=== PATIENT | female | born 1965 ===

== ENCOUNTER 2017-12-11 07:35 | Inpatient (IN) | payer OTHER ==
[2017-12-11 08:11] VITALS: BMI 22.8
[2017-12-11] MEDS ORDERED: Sodium Chloride 0.9% 1,000 ML IV STA (08:35)
--- NOTE | 2017-12-11 09:04 | ED PDOC ---
HPI: Abdomen Time Seen by Provider: 12/11/17 08:23 Chief Complaint (Nursing): Abdominal Pain Chief Complaint (Provider): Abdominal Pain History Per: Patient History/Exam Limitations: no limitations Onset/Duration Of Symptoms: Days (x today) Current Symptoms Are (Timing): Still Present Additional Complaint(s): 52-year-old female, with a PMHx of renal cancer, presents to ED with acute onset of periumbilical abdominal cramping and pain sensation that started this morning at 05:00. Pt reports (+) vomiting, but (-) diarrhea. Pt reports she vomited x 4. Reports pain is localized and non-radiating. (-) fever, (-) chills , (-) urinary symptoms. Pt denies having diabetes or hypertension. Pt states she lives in [place], [place] and is visiting daughter in [place]. Pt off plane yesterday and reports she was okay. PMD: No Provider Past Medical History Reviewed: Historical Data, Nursing Documentation, Vital Signs Vital Signs: Last Vital Signs Temp 98 F 12/11/17 08:10 Pulse 78 12/11/17 08:10 Resp 16 12/11/17 08:10 BP 106/72 12/11/17 08:10 Pulse Ox 100 12/11/17 13:43 - Medical History PMH: Denies: Diabetes, HTN Other PMH: Renal Cancer - Surgical History Surgical History: Appendectomy (many years ago) Other surgeries: left nephrectomy - Family History Family History: States: No Known Family Hx - Social History Current smoker - smoking cessation education provided: No Alcohol: None Drugs: Denies - Allergies Allergies/Adverse Reactions: Allergies Allergy/AdvReac Type Severity Reaction Status Date / Time No Known Allergies Allergy Verified 12/11/17 08:13 Review of Systems ROS Statement: Except As Marked, All Systems Reviewed And Found Negative Constitutional: Negative for: Fever, Chills Cardiovascular: Negative for: Chest Pain Respiratory: Negative for: Cough, Shortness of Breath Gastrointestinal: Positive for: Nausea, Vomiting, Abdominal Pain. Negative for : Diarrhea Genitourinary Female: Negative for: Dysuria, Hematuria Musculoskeletal: Negative for: Back Pain Skin: Negative for: Rash Physical Exam - Reviewed Nursing Documentation Reviewed: Yes Vital Signs Reviewed: Yes - Physical Exam Appears: Positive for: Well (Well-nourished), In Acute Distress (Moderate discomfort from pain) Head Exam: Positive for: ATRAUMATIC, NORMAL INSPECTION, NORMOCEPHALIC Skin: Positive for: Normal Color, Warm, Dry. Negative for: Rash, Jaundice Eye Exam: Negative for: Scleral icterus ENT: Positive for: Other ((+) Muscous membrane is mildly dry, (-) sinusitis) Neck: Positive for: Supple Cardiovascular/Chest: Positive for: Regular Rate, Rhythm (s1 and s2 heart sounds present) Respiratory: Positive for: Normal Breath Sounds (Lungs clear). Negative for: Respiratory Distress Gastrointestinal/Abdominal: Positive for: Bowel Sounds (Bowel sounds present in all 4 quadrants), Soft, Tenderness (Moderate tenderness on palpation to LLQ and periumbilical area), Other ((+) vertical scar noted to midline, (+) horizontal scar noted to RLQ). Negative for: Distended Back: Positive for: Normal Inspection. Negative for: L CVA Tenderness, R CVA Tenderness Extremity: Positive for: Normal ROM. Negative for: Pedal Edema Neurologic/Psych: Positive for: Alert, Oriented (x 3) - Laboratory Results Result Diagrams: 12/11/17 08:42 12/11/17 08:42 - ECG O2 Sat by Pulse Oximetry: 100 (RA) Pulse Ox Interpretation: Normal Medical Decision Making Medical Decision Making: Time: 08:35 Impression(s): Abdominal Pain Differentials include, but not limited to: Gastritis, Small Bowel Obstruction, Colitis, UTI Plan: - CMP - Lipase - ED Urine Dipstick - CBC (with differentials) - Obstructive Series X-Ray - Sodium Chloride 0.9% 1,000 ml IV 999 mls/hr - Pepcid 20 mg IVP - Toradol 30 mg IVP - Zofran 4 mg IVP Time: 10:50 - CT Abdomen and Pelvis PO Contrast - Omnipaque 240 (50 ML) 50 ml PO Time: 11:33 Obstructive Series X-Ray FINDINGS: CHEST: Lungs: Clear. Cardiovascular: Normal size heart. No pulmonary vascular congestion. Pleura: No pleural fluid. No pneumothorax. Other findings: None. ABDOMEN AND PELVIS: Bowel: Unremarkable bowel gas pattern. No evidence of mechanical obstruction. Free air: None. Bones: Degenerative changes. Other findings: Left upper quadrant surgical clips. IMPRESSION: Unremarkable radiographs of chest and abdomen. No evidence of mechanical bowel obstruction. Time: 13:20 CT Abdomen and Pelvis w/o IV Contrast FINDINGS: LOWER THORAX: Unremarkable. LIVER: Unremarkable. No gross lesion or ductal dilatation. GALLBLADDER AND BILE DUCTS: Unremarkable. PANCREAS: Unremarkable. No gross lesion or ductal dilatation. SPLEEN: Unremarkable. ADRENALS: Unremarkable. No mass. KIDNEYS AND URETERS: Punctate nonobstructive right interpolar calculi. Prior left nephrectomy. No hydronephrosis. No solid mass. VASCULATURE: Unremarkable. No aortic aneurysm. BOWEL: Small to moderate hiatal hernia. Dilated small bowel loops with abrupt transition in the retro umbilical abdomen and fecalization of small bowel contents. No gross mural thickening. APPENDIX: No findings to suggest acute appendicitis. PERITONEUM: Small fat containing umbilical hernia. Trace nonspecific free fluid in the pelvis. No free air. LYMPH NODES: Unremarkable. No enlarged lymph nodes. BLADDER: Unremarkable. REPRODUCTIVE: Unremarkable. BONES: No acute fracture. OTHER FINDINGS: None. IMPRESSION: Small bowel obstruction with transition zone in the retro umbilical abdomen. Nonobstructive right-sided nephrolithiasis. Findings conveyed to Dr. Ordaz by Dr. Ambrose at 1:18 p.m. on 12/11/2017. 13:42 ED Provider discussed case with surgical garment inspector Scribe Attestation: Documented by Adeel Carmona, acting as a scribe for Bri Ordaz MD. Provider Scribe Attestation: All medical record entries made by the Scribe were at my direction and personally dictated by me. I have reviewed the chart and agree that the record accurately reflects my personal performance of the history, physical exam, medical decision making, and the department course for this patient. I have also personally directed, reviewed, and agree with the discharge instructions and disposition. Disposition - Clinical Impression Clinical Impression: SBO (small bowel obstruction) - Patient ED Disposition Is Patient to be Admitted: Yes Doctor Will See Patient In The: Hospital - Disposition Referrals: FAMILY PROVIDER,NO [Primary Care Provider] - Disposition: Routine/Home Disposition Time: 14:00 Condition: FAIR Forms: [employer] ([place]) - Pt Status Changed To: Hospital Disposition Of: Inpatient - Admit Certification Admit to Inpatient:: After my assessment, the patient will require hospitalization for at least two midnights. This is because of the severity of symptoms shown, intensity of services needed, and/or the medical risk in this patient being treated as an outpatient.
[2017-12-11 09:33] LABS: BASO # 0.1 K/uL (0.0-0.2); BASO % 0.6 % (0.0-2.0); EOS # 0.1 K/uL (0.0-0.7); EOS % 0.5 % (0.0-4.0); HEMOGLOBIN 11.6 g/dL (12.0-16.0); LYMPH # 1.1 K/uL (1.0-4.3); LYMPH % 10.1 % (20.0-40.0); MEAN CORPUSCULAR HEMOGLOBIN 25.7 pg (27.0-31.0); MEAN PLATELET VOLUME 9.1 fl (7.2-11.7); MONO # 0.4 K/uL (0.0-0.8); NEUT # 9.4 K/uL (1.8-7.0); NEUT % 84.8 % (50.0-75.0); NRBC % 0.1 % (0.0-0.0); RBC 4.49 Mil/uL (3.80-5.20); RED CELL DISTRIBUTION WIDTH 15.5 % (11.5-14.5); WHITE BLOOD COUNT 11.1 K/uL (4.8-10.8)
[2017-12-11 09:49] LABS: ALB/GLOB RATIO 1.1 (1.0-2.1); ALBUMIN 4.8 g/dL (3.5-5.0); ALT/SGPT 38 U/L (9-52); AST/SGOT 25 U/L (14-36); BLOOD UREA NITROGEN 17 mg/dl (7-17); CALCIUM 10.5 mg/dL (8.4-10.2); GFR AFRICAN-AMERICAN > 60; GFR NON-AFRICAN AMERICAN > 60; LIPASE 177 U/L (23-300)
[2017-12-11] MEDS ORDERED: Iohexol 240 (50 ml) PO ONE (10:50)
[2017-12-11] MEDS ORDERED: Iohexol 240 (50 ml) ONE (11:02)
--- NOTE | 2017-12-11 11:34 | RAD ---
PROCEDURE: Radiographs of the chest and abdomen (obstructive series) HISTORY: abdominal pain COMPARISON: No prior. TECHNIQUE: AP radiograph of the chest, with upright and supine radiographs of the abdomen. FINDINGS: CHEST: Lungs: Clear. Cardiovascular: Normal size heart. No pulmonary vascular congestion. Pleura: No pleural fluid. No pneumothorax. Other findings: None. ABDOMEN AND PELVIS: Bowel: Unremarkable bowel gas pattern. No evidence of mechanical obstruction. Free air: None. Bones: Degenerative changes. Other findings: Left upper quadrant surgical clips. IMPRESSION: Unremarkable radiographs of chest and abdomen. No evidence of mechanical bowel obstruction.
--- NOTE | 2017-12-11 13:22 | CT ---
PROCEDURE: CT Abdomen and Pelvis without intravenous contrast HISTORY: 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 TECHNIQUE: Contiguous images were obtained from the domes of the diaphragms to the upper thighs without the administration of intravenous contrast. Oral contrast was administered. Radiation dose: Total exam DLP = 613.2 mGy-cm. This CT exam was performed using one or more of the following dose reduction techniques: Automated exposure control, adjustment of the mA and/or kV according to patient size, and/or use of iterative reconstruction technique. FINDINGS: LOWER THORAX: Unremarkable. LIVER: Unremarkable. No gross lesion or ductal dilatation. GALLBLADDER AND BILE DUCTS: Unremarkable. PANCREAS: Unremarkable. No gross lesion or ductal dilatation. SPLEEN: Unremarkable. ADRENALS: Unremarkable. No mass. KIDNEYS AND URETERS: Punctate nonobstructive right interpolar calculi. Prior left nephrectomy. No hydronephrosis. No solid mass. VASCULATURE: Unremarkable. No aortic aneurysm. BOWEL: Small to moderate hiatal hernia. Dilated small bowel loops with abrupt transition in the retro umbilical abdomen and fecalization of small bowel contents. No gross mural thickening. APPENDIX: No findings to suggest acute appendicitis. PERITONEUM: Small fat containing umbilical hernia. Trace nonspecific free fluid in the pelvis. No free air. LYMPH NODES: Unremarkable. No enlarged lymph nodes. BLADDER: Unremarkable. REPRODUCTIVE: Unremarkable. BONES: No acute fracture. OTHER FINDINGS: None. IMPRESSION: Small bowel obstruction with transition zone in the retro umbilical abdomen. Nonobstructive right-sided nephrolithiasis. Findings conveyed to Dr. Ordaz by Dr. Ambrose at 1:18 p.m. on 12/11/2017.
--- NOTE | 2017-12-11 14:29 | CP.PCM.CON ---
History of Present Illness - History of Present Illness History of Present Illness: General Surgery - DR. Horan 52 yo F w/ hx of Left Nephrectomy for renal ca and recent laparoscopic hysterectomy ~2weeks ago in [place], presenting today with cramping abdominal pain , nausea and vomiting since 5am this morning. Pt states she saw her surgeon yesterday in [place] for post-op visit and had no issues at the time. She flew here in the evening to visit family and woke up around 5am this morning with pain. She describes the pain as located in the infra-umbilical region, intermittent, cramping, 7/10 at worst. She had associated nausea and vomited 4- 5x, gastric contents with some bilious fluid. She came to the ED and was given Zofran which she states made her feel much better and was then able to tolerate PO contrast for CT scan. Pt has had no further vomiting episodes since. She admits to passing flatus last night and had several small BMs this morning. Pt denies any Fevers/Chills, SOb or chest pains. PMH: Renal ca PSH: Open Left Nephrectomy, Laparoscopic Hysterectomy NKDA Review of Systems - Review of Systems All systems: reviewed and no additional remarkable complaints except (as per HPI ) Past Patient History - Past Social History Alcohol: None Drugs: Denies - CARDIAC Hx Hypertension: No - RENAL Hx Chronic Kidney Disease: Yes - PSYCHIATRIC Hx Substance Use: No - SURGICAL HISTORY Hx Appendectomy: Yes (many years ago) Meds Allergies/Adverse Reactions: Allergies Allergy/AdvReac Type Severity Reaction Status Date / Time No Known Allergies Allergy Verified 12/11/17 08:13 - Medications Medications: Current Medications Famotidine (Pepcid) 20 mg IVP DAILY NATASHA Lactated Ringer's (Lactated Ringer's) 1,000 mls @ 100 mls/hr IV .Q10H NATASHA Ketorolac Tromethamine (Toradol) 15 mg IVP Q6 PRN PRN Reason: Pain, moderate (4-7) Ondansetron HCl (Zofran Inj) 4 mg IVP Q4 PRN PRN Reason: Nausea/Vomiting Physical Exam - Constitutional Appears: No Acute Distress - Head Exam Head Exam: ATRAUMATIC, NORMAL INSPECTION, NORMOCEPHALIC - Eye Exam Eye Exam: EOMI, Normal appearance - ENT Exam ENT Exam: Mucous Membranes Dry - Respiratory Exam Respiratory Exam: NORMAL BREATHING PATTERN. absent: Respiratory Distress - Cardiovascular Exam Cardiovascular Exam: REGULAR RHYTHM - GI/Abdominal Exam GI & Abdominal Exam: Soft, Tenderness (mild ttp below the umbilicus). absent: Distended, Firm, Guarding, Hernia, Rebound, Rigid - Neurological Exam Neurological exam: Alert, Oriented x3 - Psychiatric Exam Psychiatric exam: Normal Affect, Normal Mood - Skin Skin Exam: Dry, Intact Results - Vital Signs Recent Vital Signs: Last Vital Signs Temp 98 F 12/11/17 08:10 Pulse 78 12/11/17 08:10 Resp 16 12/11/17 08:10 BP 106/72 12/11/17 08:10 Pulse Ox 100 12/11/17 14:17 - Labs Result Diagrams: 12/11/17 08:42 12/11/17 08:42 Labs: Laboratory Results - last 24 hr 12/11/17 12/11/17 08:42 08:42 WBC 11.1 H RBC 4.49 Hgb 11.6 L Hct 35.1 MCV 78.0 L MCH 25.7 L MCHC 33.0 RDW 15.5 H Plt Count 515 H MPV 9.1 Neut % (Auto) 84.8 H Lymph % (Auto) 10.1 L [place] % (Auto) 4.0 Eos % (Auto) 0.5 Baso % (Auto) 0.6 Neut # (Auto) 9.4 H Lymph # (Auto) 1.1 [place] # (Auto) 0.4 Eos # (Auto) 0.1 Baso # (Auto) 0.1 Sodium 144 Potassium 4.3 Chloride 107 Carbon Dioxide 19 L Anion Gap 22 H BUN 17 Creatinine 0.9 Est GFR ( Amer) > 60 Est GFR (Non-Af Amer) > 60 Random Glucose 102 Calcium 10.5 H Total Bilirubin 0.5 AST 25 ALT 38 Alkaline Phosphatase 153 H Total Protein 9.2 H Albumin 4.8 Globulin 4.4 H Albumin/Globulin Ratio 1.1 Lipase 177 - Imaging and Cardiology CT scan - abdomen Status: Image reviewed by me, Report reviewed by me Assessment & Plan - Assessment and Plan (Free Text) Assessment: 52yo F w/ hx of Nephrectomy, Hysterectomy, presenting w/ partial SBO -Maintain NPO, IVF -Pain control, Anti-emetics PRN -NGT if vomits or clinically worsens -Will continue to monitor -No surgical plans at this time DW Dr. Aung Agrawal PGY4
[2017-12-11] MEDS: Lactated Ringer's 1,000 ML IV SCH (15:37)
[2017-12-11] MEDS ORDERED: Benzocaine/Menthol (Cepacol) Lozenge PO PRN (21:25)
[2017-12-11] MEDS ORDERED: Chlorhexidine Gluconate 1 APPL/PKT TP ONE (21:48)
[2017-12-12] MEDS: Lactated Ringer's 1,000 ML IV SCH (00:30)
--- NOTE | 2017-12-12 07:49 | CON ---
DATE: 12/11/2017 HISTORY OF PRESENT ILLNESS: This is a 52-year-old G2, P2-0-0-2 with a history of renal cancer, status post robotic hysterectomy and bilateral salpingectomy done on 11/24/2017 for a symptomatic fibroid uterus, pelvic and peritoneal adhesions. The robotic surgery also involved laparoscopic enterolysis and the findings included extensive peritoneal abdominal adhesions and a large myomatous uterus and right ovarian cyst. The patient was visiting her daughter who lives in [place] today from [place], [place]. The patient reports that she had a LEGAL BILLING SPECIALIST followup yesterday and everything was okay. She reports that she had stopped bleeding from the surgery about a week ago. The patient presented with abdominal cramping and vomiting today and has been admitted to [facility] with the diagnosis of a partial small bowel obstruction. She has been admitted to the medicine service. It was noted that the patient was having some vaginal bleeding since she had been vomiting, and so LEGAL BILLING SPECIALIST consult was called. PAST MEDICAL HISTORY: Healthy. 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 In 1990, she had an open appendectomy and on 11/24/2017 she underwent a robotic total laparoscopic hysterectomy, bilateral salpingectomy, and laparoscopic enterolysis, and right ovarian cystectomy. MEDICATIONS: Cepacol Sore Throat, Pepcid, Toradol as needed, lactated Ringer's, Ativan as needed, and Zofran as needed. ALLERGIES: NO KNOWN DRUG ALLERGIES. FAMILY HISTORY: Noncontributory. SOCIAL HISTORY: The patient is a current smoker. She denies alcohol and drug use. Of note, the patient lives in [place], [place] and was visiting her daughter who lives in [place]. The patient's Bus Washer is Dr. Lopez and the patient had her surgery done by Dr. Amish Wynne who is a gynecologic oncologist. OBSTETRICAL HISTORY: The patient underwent full-term vaginal delivery x2. GYNECOLOGIC HISTORY: Menarche at 16, history of regular periods. She denies any STDs or any abnormal Paps. History of symptomatic fibroid uterus as above. PHYSICAL EXAMINATION: GENERAL: The patient appears in no acute distress. She does have an NG-tube in place. The incisions of her robotic surgery appeared to be intact. No erythema. No drainage. ABDOMEN: Her abdomen was soft, and nontender. Speculum exam revealed light blood in the very small blood clot seen. There was no active bleeding noted and the cuff appeared to be intact. There was no evidence of dehiscence. LABORATORY DATA: On 12/11/2017, her white count is 11.1, hemoglobin 11.6, platelets are 515, elevated. The patient underwent an abdominopelvic CT scan that revealed small-bowel obstruction with transition zone in the retroumbilical abdomen and a nonobstructive right-sided nephrolithiasis. ASSESSMENT AND PLAN: This is a 52-year-old G2, P2-0-0-2, status post robotic total laparoscopic hysterectomy, bilateral salpingectomy with laparoscopic enterolysis done on 11/24/2017, who is being admitted for partial small bowel obstruction with vaginal bleeding that seems to have started again after she was vomiting. I suspect that an area in the vaginal cuff started to bleed due to the retching and the vomiting and there was no active bleeding seen on the exam and I suspect that this bleeding should be self limited. We will follow. Donna Garcia MD
[2017-12-12 07:53] LABS: BASO % 0.3 % (0.0-2.0); EOS # 0.2 K/uL (0.0-0.7); EOS % 2.3 % (0.0-4.0); LYMPH % 10.7 % (20.0-40.0); MEAN CELL VOLUME 78.5 fl (81.0-99.0); MEAN CORPUSCULAR HEMOGLOBIN 26.5 pg (27.0-31.0); MEAN CORPUSCULAR HGB CONC 33.7 g/dL (33.0-37.0); MEAN PLATELET VOLUME 8.9 fl (7.2-11.7); MONO # 0.6 K/uL (0.0-0.8); MONO % 7.2 % (0.0-10.0); NEUT # 7.1 K/uL (1.8-7.0); NEUT % 79.5 % (50.0-75.0); RBC 3.56 Mil/uL (3.80-5.20); RED CELL DISTRIBUTION WIDTH 15.3 % (11.5-14.5); WHITE BLOOD COUNT 8.9 K/uL (4.8-10.8)
[2017-12-12 08:01] LABS: HEMOGLOBIN 9.4 g/dL (12.0-16.0)
[2017-12-12 08:08] VITALS: RESP 18; O2SAT 99
[2017-12-12 08:15] LABS: ALBUMIN 3.2 g/dL (3.5-5.0); ALT/SGPT 23 U/L (9-52); AST/SGOT 18 U/L (14-36); BLOOD UREA NITROGEN 16 mg/dl (7-17); CALCIUM 8.2 mg/dL (8.4-10.2); GFR AFRICAN-AMERICAN > 60; GFR NON-AFRICAN AMERICAN > 60
[2017-12-12 08:19] LABS: INR 1.1 (0.9-1.2); PARTIAL THROMBOPLASTIN TIME 28.8 Seconds (25.6-37.1); PROTHROMBIN TIME 12.7 Seconds (9.8-13.1)
--- NOTE | 2017-12-12 09:06 | CP.PCM.PN ---
Subjective - Date & Time of Evaluation Date of Evaluation: 12/12/17 Time of Evaluation: 09:05 - Subjective Subjective: General surgery progress note for Dr. Tabitha Jeffers, PGY-2 Pt S & E at bedside at 0715 and again with attending at 0815 Pt reports that abdominal pain has resolved, abdominal distention has resolved. Passing gas and having liquid stools x 2 overnight and this AM. Denies N & V , F & C, other complaints. NGT with 100cc cloudy gastric fluid. Objective - Vital Signs/Intake and Output Vital Signs (last 24 hours): Temp Pulse Resp BP Pulse Ox 97.5 F L 69 18 109/75 99 12/12/17 08:08 12/12/17 08:08 12/12/17 08:08 12/12/17 08:08 12/12/17 08:08 Intake and Output: 12/12/17 12/12/17 06:59 18:59 Intake Total 1250 Output Total 100 Balance 1150 - Medications Medications: Current Medications Benzocaine/Menthol (Cepacol Sore Throat) 1 sai PO Q2 PRN PRN Reason: Sore Throat Last Admin: 12/11/17 22:39 Dose: 1 sai Famotidine (Pepcid) 20 mg IVP DAILY NATASHA Lactated Ringer's (Lactated Ringer's) 1,000 mls @ 100 mls/hr IV .Q10H NATASHA Last Admin: 12/12/17 00:30 Dose: Not Given Ketorolac Tromethamine (Toradol) 15 mg IVP Q6 PRN PRN Reason: Pain, moderate (4-7) Last Admin: 12/11/17 15:38 Dose: 15 mg Lorazepam (Ativan) 0.5 mg IVP Q6H PRN PRN Reason: Anxiety Last Admin: 12/11/17 23:42 Dose: 0.5 mg Ondansetron HCl (Zofran Inj) 4 mg IVP Q4 PRN PRN Reason: Nausea/Vomiting Last Admin: 12/11/17 14:48 Dose: 4 mg - Labs Labs: 12/12/17 05:30 12/12/17 05:30 PT 12.7 Seconds (9.8-13.1) 12/12/17 05:30 INR 1.1 (0.9-1.2) 12/12/17 05:30 APTT 28.8 Seconds (25.6-37.1) 12/12/17 05:30 - Constitutional Appears: Non-toxic, No Acute Distress - Head Exam Head Exam: ATRAUMATIC, NORMAL INSPECTION, NORMOCEPHALIC - Eye Exam Eye Exam: EOMI, Normal appearance - ENT Exam ENT Exam: Mucous Membranes Moist, Normal Exam - Neck Exam Neck Exam: Full ROM, Normal Inspection - Respiratory Exam Respiratory Exam: NORMAL BREATHING PATTERN - Cardiovascular Exam Cardiovascular Exam: REGULAR RHYTHM, +S1, +S2 - GI/Abdominal Exam GI & Abdominal Exam: Soft. absent: Distended, Firm, Guarding, Rigid, Tenderness , Hernia, Mass, Rebound - Extremities Exam Extremities Exam: Normal Inspection. absent: Pedal Edema - Neurological Exam Neurological Exam: Alert, Awake, CN II-XII Intact, Oriented x3 - Psychiatric Exam Psychiatric exam: Normal Affect, Normal Mood - Skin Skin Exam: Dry, Intact, Normal Color, Warm Additional comments: abdominal incisions - dry, non erythematous, no fluctuance noted Assessment and Plan - Assessment and Plan (Free Text) Assessment: 52F w/pSBO s/p hysterectomy 2 weeks ago- resolved Plan: FU Ab x-ray May d/c NGT after reviewing ab x-ray May try CLD if NGT is d/c'd Pain control Plan to progress diet and clear for d/c this afternoon if tolerating diet/ remove NGT No surgical intervention at this time OTTO attending Aury, PGY-2
--- NOTE | 2017-12-12 10:28 | RAD ---
HISTORY: SBO, Eval Progression of Contrast COMPARISON: December 11, 2017. December 11, 2017. CT abdomen and pelvis. Summary of findings on the comparison examination: Small-bowel obstruction with transition zone in the retro umbilical abdomen. FINDINGS: BOWEL: Normal. No obstruction. No free air. Nasogastric tube in a decompressed stomach. Contrast in nondistended colon related to recent CT scan of the abdomen and pelvis. BONES: Normal. OTHER FINDINGS: None. IMPRESSION: No acute findings related to/accounting for the clinical presentation. Findings of small-bowel obstruction identified on CT scan are not readily apparent on the current study
[2017-12-12] MEDS ORDERED: Famotidine 40 MG/5 ML PO SCH (11:45)
[2017-12-12 16:44] VITALS: BP 103/69; PULSE 75; TEMP 98.4
--- NOTE | 2017-12-13 08:02 | CP.PCM.HP ---
History of Present Illness - History of Present Illness History of Present Illness: CC: Abdominal PAin History of Present Illness: A 52-year-old female, with a PMHx of renal cancer S/P Left Nephrectomy, presents to ED with acute onset of Periumbilical abdominal colicky pain 8/10 sensation that started yesterday morning at 05:00. Pt reports (+) vomiting , but (-) diarrhea. Pt reports she vomited x 4, Non-bloody. Reports pain is localized and non-radiating. (-) fever, (-) chills, (-) urinary symptoms. Hysterectomy about 2weeks for Menorrhagia and Metrorrhagia due to Fibroid and Endometriosis. Pt states she lives in [place], [place] and is visiting daughter in [place]. Pt off plane yesterday. Patient had NG decompression and today NG tube removed and feeling better. + Diarrhea X2, and ambulated and tolerating Clear Liquid diet Present on Admission - Present on Admission Any Indicators Present on Admission: No Review of Systems - Review of Systems All systems: reviewed and no additional remarkable complaints except Past Patient History - Past Medical History & Family History Past Medical History?: Yes Past Family History: Reviewed and not pertinent - Past Social History Smoking Status: Never Smoked Alcohol: None Drugs: Denies - CARDIAC Hx Cardiac Disorders: No - PULMONARY Hx Respiratory Disorders: No - NEUROLOGICAL Hx Neurological Disorder: No - HEENT Hx HEENT Problems: No - RENAL Other/Comment: Renal CA - ENDOCRINE/METABOLIC Hx Endocrine Disorders: No - HEMATOLOGICAL/ONCOLOGICAL Hx Blood Disorders: No - INTEGUMENTARY Hx Dermatological Problems: No - MUSCULOSKELETAL/RHEUMATOLOGICAL Hx Musculoskeletal Disorders: No Hx Falls: No - GASTROINTESTINAL Hx Gastrointestinal Disorders: No - GENITOURINARY/GYNECOLOGICAL Hx Genitourinary Disorders: No - PSYCHIATRIC Hx Psychophysiologic Disorder: No Hx Substance Use: No - SURGICAL HISTORY Hx Appendectomy: Yes Hx Hysterectomy: Yes Other/Comment: Left nephrectomy - ANESTHESIA Hx Anesthesia: Yes Hx Anesthesia Reactions: No Meds Allergies/Adverse Reactions: Allergies Allergy/AdvReac Type Severity Reaction Status Date / Time No Known Allergies Allergy Verified 12/11/17 08:13 Physical Exam - Constitutional Appears: No Acute Distress - Head Exam Head Exam: ATRAUMATIC, NORMAL INSPECTION, NORMOCEPHALIC - Eye Exam Eye Exam: EOMI, Normal appearance, PERRL Pupil Exam: NORMAL ACCOMODATION, PERRL - ENT Exam ENT Exam: Mucous Membranes Moist, Normal Exam - Neck Exam Neck exam: Positive for: Full Rom, Normal Inspection - Respiratory Exam Respiratory Exam: Clear to Auscultation Bilateral, NORMAL BREATHING PATTERN - Cardiovascular Exam Cardiovascular Exam: REGULAR RHYTHM, +S1, +S2 - GI/Abdominal Exam GI & Abdominal Exam: Normal Bowel Sounds, Soft, Tenderness. absent: Guarding, Rebound, Rigid - Extremities Exam Extremities exam: Positive for: normal inspection - Back Exam Back exam: NORMAL INSPECTION - Neurological Exam Neurological exam: Alert, CN II-XII Intact, Normal Gait, Oriented x3, Reflexes Normal - Psychiatric Exam Psychiatric exam: Normal Affect, Normal Mood - Skin Skin Exam: Dry, Intact, Normal Color, Warm Results - Vital Signs Recent Vital Signs: Last Vital Signs Temp 98.4 F 12/12/17 16:44 Pulse 75 12/12/17 16:44 Resp 18 12/12/17 16:44 BP 103/69 12/12/17 16:44 Pulse Ox 99 12/12/17 16:44 - Labs Result Diagrams: 12/12/17 05:30 12/12/17 05:30 Labs: Laboratory Results - last 24 hr 12/12/17 12/12/17 12/12/17 05:30 05:30 05:30 WBC 8.9 RBC 3.56 L Hgb 9.4 L D Hct 27.9 L MCV 78.5 L MCH 26.5 L MCHC 33.7 RDW 15.3 H Plt Count 387 D MPV 8.9 Neut % (Auto) 79.5 H Lymph % (Auto) 10.7 L [place] % (Auto) 7.2 Eos % (Auto) 2.3 Baso % (Auto) 0.3 Neut # (Auto) 7.1 H Lymph # (Auto) 1.0 [place] # (Auto) 0.6 Eos # (Auto) 0.2 Baso # (Auto) 0.0 PT 12.7 INR 1.1 APTT 28.8 Sodium 142 Potassium 4.0 Chloride 111 H Carbon Dioxide 21 L Anion Gap 14 BUN 16 Creatinine 0.9 Est GFR ( Amer) > 60 Est GFR (Non-Af Amer) > 60 Random Glucose 87 Calcium 8.2 L Total Bilirubin 0.4 AST 18 ALT 23 Alkaline Phosphatase 91 Total Protein 6.5 Albumin 3.2 L D Globulin 3.3 Albumin/Globulin Ratio 1.0 - Imaging and Cardiology CT abdomen/Pelvis: Status: Report reviewed by me Additional comment: PROCEDURE: CT Abdomen and Pelvis without intravenous contrast HISTORY: 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 TECHNIQUE: Contiguous images were obtained from the domes of the diaphragms to the upper thighs without the administration of intravenous contrast. Oral contrast was administered. Radiation dose: Total exam DLP = 613.2 mGy-cm. This CT exam was performed using one or more of the following dose reduction techniques: Automated exposure control, adjustment of the mA and/or kV according to patient size, and/or use of iterative reconstruction technique. FINDINGS: LOWER THORAX: Unremarkable. LIVER: Unremarkable. No gross lesion or ductal dilatation. GALLBLADDER AND BILE DUCTS: Unremarkable. PANCREAS: Unremarkable. No gross lesion or ductal dilatation. SPLEEN: Unremarkable. ADRENALS: Unremarkable. No mass. KIDNEYS AND URETERS: Punctate nonobstructive right interpolar calculi. Prior left nephrectomy. No hydronephrosis. No solid mass. VASCULATURE: Unremarkable. No aortic aneurysm. BOWEL: Small to moderate hiatal hernia. Dilated small bowel loops with abrupt transition in the retro umbilical abdomen and fecalization of small bowel contents. No gross mural thickening. APPENDIX: No findings to suggest acute appendicitis. PERITONEUM: Small fat containing umbilical hernia. Trace nonspecific free fluid in the pelvis. No free air. LYMPH NODES: Unremarkable. No enlarged lymph nodes. BLADDER: Unremarkable. REPRODUCTIVE: Unremarkable. BONES: No acute fracture. OTHER FINDINGS: None. IMPRESSION: Small bowel obstruction with transition zone in the retro umbilical abdomen. Nonobstructive right-sided nephrolithiasis. Findings conveyed to Dr. Ordaz by Dr. Ambrose at 1:18 p.m. on 12/11/2017. Assessment & Plan (1) SBO (small bowel obstruction) Assessment and Plan: Improving with Conservative Management Advance diet Surgery onboard IVF Ambulate PAin Med PRN Status: Acute Priority: Medium (2) H/O hysterectomy for benign disease Assessment and Plan: Vaginal Bleeding Status: Acute Priority: Low
--- NOTE | 2017-12-13 08:22 | CP.PCM.DIS ---
Provider - Provider Date of Admission: 12/11/17 14:14 Attending physician: David Ford MD Primary care physician: NO FAMILY PROVIDER Time Spent in preparation of Discharge (in minutes): 25 Diagnosis - Discharge Diagnosis (1) SBO (small bowel obstruction) Status: Acute Priority: Medium (2) H/O hysterectomy for benign disease Status: Acute Priority: Low Hospital Course - Lab Results Lab Results: Most Recent Lab Values WBC 8.9 K/uL (4.8-10.8) 12/12/17 05:30 RBC 3.56 Mil/uL (3.80-5.20) L 12/12/17 05:30 Hgb 9.4 g/dL (12.0-16.0) L D 12/12/17 05:30 Hct 27.9 % (34.0-47.0) L 12/12/17 05:30 MCV 78.5 fl (81.0-99.0) L 12/12/17 05:30 MCH 26.5 pg (27.0-31.0) L 12/12/17 05:30 MCHC 33.7 g/dL (33.0-37.0) 12/12/17 05:30 RDW 15.3 % (11.5-14.5) H 12/12/17 05:30 Plt Count 387 K/uL (130-400) D 12/12/17 05:30 MPV 8.9 fl (7.2-11.7) 12/12/17 05:30 Neut % (Auto) 79.5 % (50.0-75.0) H 12/12/17 05:30 Lymph % (Auto) 10.7 % (20.0-40.0) L 12/12/17 05:30 [place] % (Auto) 7.2 % (0.0-10.0) 12/12/17 05:30 Eos % (Auto) 2.3 % (0.0-4.0) 12/12/17 05:30 Baso % (Auto) 0.3 % (0.0-2.0) 12/12/17 05:30 Neut # (Auto) 7.1 K/uL (1.8-7.0) H 12/12/17 05:30 Lymph # (Auto) 1.0 K/uL (1.0-4.3) 12/12/17 05:30 [place] # (Auto) 0.6 K/uL (0.0-0.8) 12/12/17 05:30 Eos # (Auto) 0.2 K/uL (0.0-0.7) 12/12/17 05:30 Baso # (Auto) 0.0 K/uL (0.0-0.2) 12/12/17 05:30 PT 12.7 Seconds (9.8-13.1) 12/12/17 05:30 INR 1.1 (0.9-1.2) 12/12/17 05:30 APTT 28.8 Seconds (25.6-37.1) 12/12/17 05:30 Sodium 142 mmol/l (132-148) 12/12/17 05:30 Potassium 4.0 MMOL/L (3.6-5.0) 12/12/17 05:30 Chloride 111 mmol/L (98-107) H 12/12/17 05:30 Carbon Dioxide 21 mmol/L (22-30) L 12/12/17 05:30 Anion Gap 14 (10-20) 12/12/17 05:30 BUN 16 mg/dl (7-17) 12/12/17 05:30 Creatinine 0.9 mg/dl (0.7-1.2) 12/12/17 05:30 Est GFR ( Amer) > 60 12/12/17 05:30 Est GFR (Non-Af Amer) > 60 12/12/17 05:30 Random Glucose 87 mg/dL (65-105) 12/12/17 05:30 Calcium 8.2 mg/dL (8.4-10.2) L 12/12/17 05:30 Total Bilirubin 0.4 mg/dl (0.2-1.3) 12/12/17 05:30 AST 18 U/L (14-36) 12/12/17 05:30 ALT 23 U/L (9-52) 12/12/17 05:30 Alkaline Phosphatase 91 U/L (38-126) 12/12/17 05:30 Total Protein 6.5 G/DL (6.3-8.2) 12/12/17 05:30 Albumin 3.2 g/dL (3.5-5.0) L D 12/12/17 05:30 Globulin 3.3 gm/dL (2.2-3.9) 12/12/17 05:30 Albumin/Globulin Ratio 1.0 (1.0-2.1) 12/12/17 05:30 Lipase 177 U/L (23-300) 12/11/17 08:42 Procalcitonin < 0.05 NG/ML (0.19-0.49) L 12/11/17 15:15 Discharge Exam - Head Exam Head Exam: ATRAUMATIC, NORMAL INSPECTION, NORMOCEPHALIC Discharge Plan - Follow Up Plan Condition: FAIR Disposition: HOME/ ROUTINE Instructions: Small Bowel Obstruction (DC) Additional Instructions: If you are in town, ok to follow up with Dr. Horan in the office in 1 week. Referrals: FAMILY PROVIDER,NO [Primary Care Provider] - Rodger Horan MD [Staff Provider] -
--- NOTE | 2017-12-13 10:57 | PN ---
DATE: 12/12/2017 SUBJECTIVE: The patient is noted to be afebrile. Vital signs are normal. Laboratory shows a white count down to 8.9, hemoglobin 9.4. Coag is normal. Albumin is slightly low at 3.2, otherwise pretty much unremarkable. There is a CAT scan done on 12/11/2017 that I reviewed which clearly looks like small-bowel obstruction, although the small bowel is not that dilated. PHYSICAL EXAMINATION: GENERAL: She is unremarkable. ABDOMEN: Soft, nontender. She has an NG tube in which drained very little since the initial placement. She says she is passing and has had two bowel movements, one last night and one this morning, diarrhea. The patient having been status post about two weeks a laparoscopic hysterectomy. IMPRESSION/PLAN: This is a transient event and certainly there is no surgical indication at this time. We will follow and possibly have a nasogastric tube removal. For now, the patient is healthy and can be advanced in her diet. An x-ray is pending, and everything will depend on that of course. Rodger Horan MD
== END 2017-12-12 19:15 | disposition home or self-care (01) | DRG 390 ==
LOC: H.ER 07:35 → H.ERHOLD 14:14 → H.MEDSURG1 17:42
PROVIDERS: ADMIT Internal Medicine; ATTEND Internal Medicine
DX: K56.690 Other partial intestinal obstruction (principal); N20.0 Calculus of kidney; N93.8 Other specified abnormal uterine and vaginal bleeding; Z98.890 Other specified postprocedural states; F17.210 Nicotine dependence, cigarettes, uncomplicated; Z85.528 Personal history of other malignant neoplasm of kidney; Z90.5 Acquired absence of kidney; Z90.710 Acquired absence of both cervix and uterus; Z90.49 Acquired absence of other specified parts of digestive tract